=== PATIENT | female | born 1990 | race Caucasian/White ===

== ENCOUNTER 2020-04-27 16:14 | Outpatient (REF) | payer BC, SELFPAY | END 2020-04-27 16:15 | disposition home or self-care (01) | LOC: HO.LAB 16:14 | PROVIDERS: Visit Provider Internal Medicine | DX: Z20.828 Contact with and (suspected) exposure to other viral communicable diseases (principal) | CPT/HCPCS: U0003 ==

== ENCOUNTER 2020-07-08 17:35 | Outpatient (REF) | payer BC, SELFPAY | END 2020-07-08 17:36 | disposition home or self-care (01) | LOC: HO.LAB 17:35 | PROVIDERS: PCP Family Medicine; Visit Provider Internal Medicine | DX: Z20.822 Contact with and (suspected) exposure to COVID-19 (principal) | CPT/HCPCS: 36415; C9803; U0003 ==